=== PATIENT | male | born 2000 | race Caucasian/White ===

== ENCOUNTER 2024-04-10 20:29 | Emergency (ER) | payer OTHER, SELFPAY ==
[2024-04-10 20:35] VITALS: BP 148/79; PULSE 94; RESP 16; TEMP 36.7; O2SAT 97; BMI 28.7
[2024-04-10] MEDS: TETANUS/DIPHTH/PERTUSSIS 0.5 ML SYRINGE IM (21:29)
--- NOTE | 2024-04-10 21:31 | ED.GENADULT ---
HPI - General Adult General Date Seen: 04/10/24 Chief complaint: Laceration/Wound Stated complaint: Face lac--baseball injury Time Seen by Provider: 04/10/24 20:39 Source: patient Mode of arrival: ambulatory Limitations: no limitations History of Present Illness HPI narrative: Patient is a 23-year-old male who was playing catcher tonight at the [employer] that he is part of. Summary was sliding into home base, their leg flew up and cut his right cheek with their cleat. He denies any visual complaints, no other injuries. He believes his tetanus is due. Related Data Home Medications ?Medication ?Instructions ?Recorded ?Confirmed No Known Home Medications 04/10/24 04/10/24 Allergies Allergy/AdvReac Type Severity Reaction Status Date / Time No Known Drug Allergies Allergy Verified 04/10/24 20:38 Exam Narrative: Exam Narrative: Vital signs reviewed In general, alert, nontoxic young man. Head: Normocephalic. Eyes: Pupils are equal and reactive, extraocular movements are full, no diplopia. ENT: He has a 3 cm somewhat jagged laceration across his cheek, this extends into the subcutaneous tissue, bleeding is controlled. Facial sensation is intact. Skin: Warm dry well perfused, otherwise intact. Const: Vital Signs, click to edit/add: Vital Signs - 24 hr 04/10/24 20:35 Temperature 98.1 F Pulse Rate [Left P ulse Oximeter] 94 Respiratory Rate 16 Blood Pressure [Ri ght Upper Arm] 148/79 H Pulse Oximetry 97 Oxygen Delivery Me thod Room Air Documenting provider has reviewed patient's vital signs: yes Course Course ED Course: Procedure note: The wound was anesthetized using lidocaine with epinephrine, explored without evidence of foreign body, cleaned using normal saline. I initially placed 2 simple interrupted deep sutures using 5 0 Vicryl to bring the wound edges together. I then placed a total of 8 superficial simple interrupted sutures using 6 0 nylon. There was 1 small triangular flap with a fairly broad base, this appeared a little dusky, but does appear to me like it may be viable, so I have elected to leave that in place. Patient notes that with a prior laceration on his chin he had somewhat of of what sounds like keloid type scar formation, required revision by dermatology. Discussed that ever but he is a little bit different in terms of how they form scars, and it is possible that he will form an overly vigorous scar in this situation as well. We discussed use of an ointment such as Vaseline as the wound is healing, vitamin-E oil after that, sunscreen daily for the next 6 months. Return for signs of infection. This was updated today. Vital Signs Vital signs: Initial Vital Signs Temperature 98.1 F 04/10/24 20:35 Temperature Source Temporal Artery Scan 04/10/24 20:35 Pulse Rate 94 04/10/24 20:35 Pulse Rhythm Regular 04/10/24 20:35 Respiratory Rate 16 04/10/24 20:35 Blood Pressure 148/79 H 04/10/24 20:35 Blood Pressure Mean 102 04/10/24 20:35 Blood Pressure Position Sitting 04/10/24 20:35 Pulse Oximetry 97 04/10/24 20:35 Oxygen Delivery Method Room Air 04/10/24 20:35 Vital Signs Temperature 98.1 F 04/10/24 20:35 Pulse Rate 94 04/10/24 20:35 Respiratory Rate 16 04/10/24 20:35 Blood Pressure 148/79 H 04/10/24 20:35 Pulse Oximetry 97 04/10/24 20:35 Oxygen Delivery Method Room Air 04/10/24 20:35 Temperature 98.1 F 04/10/24 20:35 Pulse Rate 94 04/10/24 20:35 Respiratory Rate 16 04/10/24 20:35 Blood Pressure 148/79 H 04/10/24 20:35 Pulse Oximetry 97 04/10/24 20:35 Oxygen Delivery Method Room Air 04/10/24 20:35 Medications Administered Medications: Discontinued Medications Generic Name Dose Route Start Last Admin Trade Name Freq PRN Reason Stop Dose Admin Lidocaine/Epinephrine 3 ml 04/10/24 21:15 04/10/24 21:18 Lidocaine 1%-Epi 1:100,000 20 Ml INFILTRATI 04/10/24 21:16 3 ml ONCE ONE Administration Discharge Plan Discharge Clinical Impression: Cheek laceration Patient Disposition: Home, Self-Care Condition: Improved Instructions: Facial Laceration (ED) Additional Instructions: Ointment such as Vaseline to the wound several times a day until suture removal in about 5-6 days. Return for signs of infection. Recommend sunscreen daily for the next 6 months to help with appearance of scar. Prescriptions: No Action No Known Home Medications Stand Alone Forms: [employer] Info Instructions
== END 2024-04-10 21:36 | disposition home or self-care (01) ==
LOC: ED 21:21
PROVIDERS: Emergency Provider Emergency Medicine
DX: S01.411A Laceration without foreign body of right cheek and temporomandibular area, initial encounter (principal); W50.0XXA Accidental hit or strike by another person, initial encounter; Y93.64 Activity, baseball; Z23 Encounter for immunization
CPT/HCPCS: 12013; 90471; 90715; 96372; 99284